=== PATIENT | male | born 2005 | race Two or more races ===

== ENCOUNTER 2025-05-29 16:27 | Emergency (ER) | payer MEDICAID, SELFPAY ==
[2025-05-29 16:45] VITALS: BP 124/86; PULSE 82; RESP 18; TEMP 37.1; O2SAT 100
--- NOTE | 2025-05-29 16:55 | PD.EDHAND ---
Upper Extremity Injury RME/HPI General Chief Complaint: Hand/Wrist Problems Stated Complaint: BENT FINGERNAIL R) INDEX FINGER Time Seen by Provider: 05/29/25 16:46 Arrival date/time: 05/29/25 16:27 Limitations: no limitations RME / HPI RME / HPI narrative: 19-year-old male here for right index finger nail injury during basketball. States basketball hit his nail and the nail bent backwards. States similar happened to him in the past. Does not want nail removed but wants nail put back in its place. Tried but could not tolerate the pain. Not due for Tdap Related Data Allergies Allergy/AdvReac Type Severity Reaction Status Date / Time No Known Allergies Allergy Verified 05/29/25 16:30 Review of Systems Review of Systems Systems Reviewed: All systems reviewed, normal except as documented Musculoskeletal Musculoskeletal: Reports as per HPI ED Exam General Limitations: Present no limitations General appearance: Present alert and in no apparent distress Eye Eye exam: Present normal appearance, PERRL and EOMI Respiratory Respiratory exam: Present normal lung sounds bilaterally Cardiovascular Cardiovascular exam: Present regular rate, normal rhythm and normal heart sounds Extremities Exam Extremities exam: Present other (Right index with partial nail avulsion bleeding below the flipped over nail) Back Exam Back exam: Present normal inspection and full ROM Skin Skin exam: Present warm, dry, intact and normal color Course Quality Measures none Orders Category Date Time Status Irrigate Wound NOW Care 05/29/25 16:55 Completed Splint / Immobilizer STAT Care 05/29/25 17:03 Completed Lidocaine 1% Vial 20 ml [Xylocaine 1% 20 ML] Med 05/29/25 16:55 Discontinued 10 ml INFL X1 ONE Vital Signs Vital signs: Vital Signs Temperature 98.7 F 05/29/25 16:45 Pulse Rate 82 05/29/25 16:45 Respiratory Rate 18 05/29/25 16:45 Blood Pressure 124/86 H 05/29/25 16:45 Pulse Oximetry (%) 100 05/29/25 16:45 Oxygen Delivery Method Room Air 05/29/25 16:45 PROCEDURES: Nerve Block Nerve Block 1: Time out performed: Yes Local Anesthetic: lidocaine 1% Amount of anesthesia used (mL): 4 Side: right Nerve Blocks: digital Procedure Successful: Yes Patient Tolerated Procedure: well Complications: none Additional Comments: Block used to bend nail back into proper alignment Splint Fabrication: Pre-Fabricated Type: Finger Protector Reason for Splint: Pain Management Site condition: Edematous and Pain Circulation Distal to Splint: Yes Movement Distal to Splint: Yes Senation Distal to Splint: Yes Tolerance: Tolerates Well Extremity Injury Patient data External records reviewed:: [facility] previous records Clinical information provided by:: patient Social determinants that could affect healthcare access:: other (specify) (No PCP appointment on the weekend) Patient has the following chronic illnesses:: None How is presenting disease/condition affected by chronic disease/condition?: no chronic disease Evaluation data The following diagnostics were reviewed and interpreted by me:: other (specify) Lab and/or radiology exams considered but not ordered:: Considered x-ray of finger however unlikely to change the course of treatment today Interpretation Summary: None Medications / Prescriptions Medications or Prescriptions considered but not ordered:: Complete nail removal considered however patient declined Antibiotics not warranted at this time Medication administrations:: Medication Administration History Discontinued Medications Lidocaine HCl (Lidocaine Hcl 1% 20 Ml Vial) 10 ml INFL X1 ONE Stop: 05/29/25 16:56 Last Admin: 05/29/25 17:07 Dose: 10 ml Documented By: ARDEN Comments: given to provider See above Consultations Consultation(s) initiated? (list below): No Diagnosis Upper Extremity Injury Differential Diagnosis: finger sprain, dislocation of finger and other (Nail avulsion) Most likely diagnosis given after review of the tests above:: Right index partial nail avulsion Admission Indicated Admission indicated?: not indicated Admission Request Was there a request for admission?: No Disposition Plan Disposition Plan: Discharge Discharge Attestation Discharge Attestation: The patient and all family members were given an opportunity to ask questions and understood the discharge instructions. Discharge instructions specifically effects, indications for sooner follow up or return to the emergency department, and the expected course of current diagnosis. Patient condition: Stable Discharge Plan Plan Patient Disposition: HOME (Self Care) Discharge Disposition comment: f/u with pcp inn 2-3days Problem List Clinical Impression: Traumatic avulsion of nail plate of finger, Contusion of finger, right Patient/Caregiver Discharge Instructions Education Materials: ED Detached Fingernail or Toenail Print Language: Bulgarian Stand Alone Forms: Yesika Award Info., Patient Portal Info Letter PA/LASTEX OPERATOR Supervising Physician PA/LASTEX OPERATOR Supervising Physician: Dr. Rincon
[2025-05-29] MEDS: LIDOCAINE HCL 1% 20 ML VIAL 10 ML INFL (17:07)
== END 2025-05-29 17:52 | disposition home or self-care (01) ==
LOC: SERX 17:27
PROVIDERS: Emergency Provider Emergency Medicine; PCP Family Medicine
DX: S61.300A Unspecified open wound of right index finger with damage to nail, initial encounter (principal); W21.05XA Struck by basketball, initial encounter
CPT/HCPCS: 11730; 99281; J3490